=== PATIENT | male | born 1955 | race Caucasian/White ===

== ENCOUNTER 2017-06-15 11:51 | Emergency (ER) | payer BC ==
[~2017-06-15] VITALS: Ht 177.8 cm; Wt 97.5 kg
[2017-06-15] MEDS ORDERED: XARELTO10 MG PO (12:10)
[2017-06-15] MEDS ORDERED: HUMALOG100 UNITS/ IV (12:11)
[2017-06-15] MEDS ORDERED: METFORMIN HCL1000 MG PO (12:11)
[2017-06-15] MEDS ORDERED: CRESTOR10 MG PO (12:11)
[2017-06-15] MEDS ORDERED: LANTUS100 UNITS/ SUB-Q (12:11)
[2017-06-15] MEDS ORDERED: METHYLPREDNISOLO4 M1 PO (12:18)
== END 2017-06-15 12:29 | disposition home or self-care (01) ==
LOC: ED 11:51
DX: M25.562 Pain in left knee (principal); E11.9 Type 2 diabetes mellitus without complications; Z88.5 Allergy status to narcotic agent; Z79.4 Long term (current) use of insulin; Z79.899 Other long term (current) drug therapy; Z96.642 Presence of left artificial hip joint
CPT/HCPCS: 99283